=== PATIENT | female | born 1995 | race Caucasian/White ===

== ENCOUNTER 2017-01-06 09:51 | Emergency (ER) | payer BC, MEDICAID ==
[2017-01-06] MEDS ORDERED: ACETAMINOPHEN 325 MG TABLET PO ONE (10:31)
[2017-01-06] MEDS ORDERED: PROMETHAZINE HCL 25 MG TABLET PO ONE (10:31)
--- NOTE | 2017-01-06 10:38 | ER Document Report ---
ED General - General Chief Complaint: Headache Stated Complaint: HEADACHE Mode of Arrival: Ambulatory Information source: Patient Notes: 21-year-old female who is 4 weeks presents with complaints of headache nausea vomiting chest pain that started at the same time 2 days ago. Patient denies any fevers or chills states that she has not taken any medications for her symptoms TRAVEL OUTSIDE OF THE [place] IN LAST 30 DAYS: No - HPI Onset: Other - 2 day duration Onset/Duration: Persistent Quality of pain: Achy Severity: Mild Pain Level: 1 Associated symptoms: Chest pain, Headache, Nausea Exacerbated by: Denies Relieved by: Denies Similar symptoms previously: No Recently seen / treated by doctor: No - Related Data Allergies/Adverse Reactions: sulfamethoxazole [From Bactrim] Allergy (Verified 01/06/17 10:03) trimethoprim [From Bactrim] Allergy (Verified 01/06/17 10:03) Past Medical History - Social History Smoking Status: Never Smoker Cigarette use (# per day): No Chew tobacco use (# tins/day): No Smoking Education Provided: No Frequency of alcohol use: None Drug Abuse: None Family History: Reviewed & Not Pertinent Patient has suicidal ideation: No Patient has homicidal ideation: No Renal/ Medical History: Denies: Hx Peritoneal Dialysis Surgical Hx: Negative - Immunizations Hx Diphtheria, Pertussis, Tetanus Vaccination: Yes Review of Systems - Review of Systems Notes: REVIEW OF SYSTEMS: CONSTITUTIONAL : Denies fever, chills, or sweats. Denies recent illness. EENT: Denies eye, ear, throat, or mouth pain or symptoms. Denies nasal or sinus congestion or discharge. Denies throat, tongue, or mouth swelling or difficulty swallowing. CARDIOVASCULAR: Admits to chest pain RESPIRATORY: Denies cough, cold, or chest congestion. Denies shortness of breath, difficulty breathing, or wheezing. GASTROINTESTINAL: Admits nausea GENITOURINARY: Denies difficulty urinating, painful urination, burning, frequency, blood in urine, or discharge. FEMALE GENITOURINARY: Denies vaginal bleeding, heavy or abnormal periods, irregular periods. Denies vaginal discharge or odor. MUSCULOSKELETAL: Denies back or neck pain or stiffness. Denies joint pain or swelling. SKIN: Denies rash, lesions or sores. HEMATOLOGIC : Denies easy bruising or bleeding. LYMPHATIC: Denies swollen, enlarged glands. NEUROLOGICAL: Admits to headache PSYCHIATRIC: Denies anxiety or stress. Denies depression, suicidal ideation, or homicidal ideation. ALL OTHER SYSTEMS REVIEWED AND NEGATIVE. Dictation was performed using [employer] voice recognition software PHYSICAL EXAMINATION: GENERAL: Well-appearing, well-nourished and in no acute distress. HEAD: Atraumatic, normocephalic. EYES: Pupils equal round and reactive to light, extraocular movements intact, conjunctiva are normal. ENT: Nares patent, oropharynx clear without exudates. Moist mucous membranes. NECK: Normal range of motion, supple without lymphadenopathy LUNGS: Breath sounds clear to auscultation bilaterally and equal. No wheezes rales or rhonchi. HEART: Regular rate and rhythm without murmurs ABDOMEN: Soft, nontender, nondistended abdomen. No guarding, no rebound. No masses appreciated. Female : deferred Musculoskeletal: Normal range of motion, no pitting or edema. No cyanosis. NEUROLOGICAL: Cranial nerves grossly intact. Normal speech, normal gait. Normal sensory, motor exams PSYCH: Normal mood, normal affect. SKIN: Warm, Dry, normal turgor, no rashes or lesions noted. Physical Exam - Vital signs Vitals: Temp Pulse Resp BP Pulse Ox 98.4 F 84 14 124/77 98 01/06/17 09:58 01/06/17 09:58 01/06/17 09:58 01/06/17 09:58 01/06/17 09:58 Course - Re-evaluation Re-evalutation: 01/06/17 10:38 Patient has no vaginal bleeding or discharge, she will be evaluated for her headache and chest pain. 01/06/17 12:19 We discussed the diagnosis and treatment of pulmonary emboli, patient is deferring on CT of chest I will discharge home with close follow-up for reevaluation or return immediately if there are any other concerns After performing a Medical Screening Examination, I estimate there is LOW risk for RUPTURED ESOPHAGUS, PNEUMOTHORAX, PULMONARY EMBOLISM, ACUTE CORONARY SYNDROME, OR THORACIC AORTIC DISSECTION, thus I consider the discharge disposition reasonable. The patient and I have discussed the diagnosis and risks , and we agree with discharging home with close follow-up. We also discussed returning to the Emergency Department immediately if new or worsening symptoms occur. We have discussed the symptoms which are most concerning (e.g., bloody sputum, worsening pain or shortness of breath) that necessitate immediate return. - Vital Signs Vital signs: Temp Pulse Resp BP Pulse Ox 98.4 F 84 14 124/77 98 01/06/17 09:58 01/06/17 09:58 01/06/17 10:25 01/06/17 09:58 01/06/17 09:58 - Diagnostic Test Radiology reviewed: Image reviewed, Reports reviewed Discharge - Discharge Clinical Impression: Headache Qualifiers: Headache type: unspecified Headache chronicity pattern: acute headache Intractability: not intractable Qualified Code(s): R51 - Headache Nausea & vomiting Qualifiers: Vomiting type: unspecified Vomiting Intractability: non-intractable Qualified Code(s): R11.2 - Nausea with vomiting, unspecified Chest pain Qualifiers: Chest pain type: unspecified Qualified Code(s): R07.9 - Chest pain, unspecified Condition: Stable Disposition: HOME, SELF-CARE Instructions: Chest Pain of Unclear Cause ([facility]) Additional Instructions: You must follow-up with your physician in 1-2 days for reevaluation or return immediately if there is any worsening symptoms or any other concerns Prescriptions: Promethazine HCl [Phenergan 25 mg Tablet] 1 - 2 tab PO Q6H PRN #15 tablet PRN Reason:
[2017-01-06 12:41] VITALS: BP 102/58
== END 2017-01-06 12:44 | disposition home or self-care (01) ==
LOC: ER 09:51
DX: O26.91 Pregnancy related conditions, unspecified, first trimester (principal); R51 Headache; R07.9 Chest pain, unspecified; O21.9 Vomiting of pregnancy, unspecified; Z3A.01 Less than 8 weeks gestation of pregnancy; Z88.3 Allergy status to other anti-infective agents
CPT/HCPCS: 71020; 99284

== ENCOUNTER 2017-06-11 09:11 | Inpatient (IN) | payer OTHER, MEDICAID ==
[2017-06-11] MEDS ORDERED: OXYTOCIN 10 UNIT/ML VIAL IV PRN (09:16)
[2017-06-11] MEDS ORDERED: RINGERS SOLUTION,LACTATED 1,000 ML IV PRN (09:16)
[2017-06-11] MEDS ORDERED: METHYLERGONOVINE MALEATE INJ/PF 0.2 MG/1 ML AMPULE IV PRN (09:16)
[2017-06-11] MEDS ORDERED: NALOXONE HCL INJ/PF 0.4 MG/1 ML SDV IV PRN (09:16)
[2017-06-11] MEDS ORDERED: MISOPROSTOL 0.2 MG TABLET PR PRN (09:16)
[2017-06-11] MEDS ORDERED: MISOPROSTOL 0.2 MG TABLET ONE (09:25)
[2017-06-11] MEDS ORDERED: OXYTOCIN/NORMAL SALINE 20 UNIT/1,000 ML RTUINJ ONE (09:25)
[2017-06-11] MEDS ORDERED: LIDOCAINE 1% INJ-PF (10 MG/ML) 30 ML SDV ONE (09:25)
[2017-06-11] MEDS ORDERED: OXYTOCIN/NORMAL SALINE 20 UNIT/1,000 ML RTUINJ IV SCH (09:30)
[2017-06-11 09:57] LABS: HEMOGLOBIN 12.3 g/dL (12.0-15.5); HGB HCT DIFFERENCE -0.1; MEAN CORPUSCULAR HEMOGLOBIN 29.1 pg (27.0-33.4); MEAN CORPUSCULAR HGB CONC 33.1 g/dL (32.0-36.0); MEAN CORPUSCULAR VOLUME 88 fl (80-97); RED BLOOD COUNT 4.21 10^6/uL (3.72-5.28); WHITE BLOOD COUNT 16.9 10^3/uL (4.0-10.5)
[2017-06-11 10:17] LABS: URINE BARBITURATES SCREEN NEGATIVE; URINE METHADONE SCREEN NEGATIVE; URINE OPIATES LOW NEGATIVE; URINE PHENCYCLIDINE SCREEN NEGATIVE
[2017-06-11] MEDS ORDERED: ACETAMINOPHEN WITH CODEINE #3 TABLET PO PRN ×2 (12:58)
[2017-06-11] MEDS ORDERED: DIPH/PERTUSS(ACELL)/TETANUS VAC/PF 0.5 ML SYR (>=10YO) IM PRN (12:58)
[2017-06-11] MEDS ORDERED: MEASLES,MUMPS&RUBELLA VACC/PF 0.5 ML VIAL SUBCUT PRN (12:58)
[2017-06-11] MEDS ORDERED: NA PHOS,M-B/NA PHOS,DI-BA (ADULT) 133 ML ENEMA PR PRN (12:58)
[2017-06-11] MEDS ORDERED: DIPHENHYDRAMINE HCL 25 MG CAPSULE PO PRN (12:58)
[2017-06-11] MEDS ORDERED: PROMETHAZINE HCL INJ 25 MG/1 ML VIAL IV PRN (12:58)
[2017-06-11] MEDS ORDERED: DIBUCAINE 1% OINTMENT 28 GM TP PRN (12:58)
[2017-06-11] MEDS ORDERED: GLYCERIN/WITCH HAZEL LEAF 1 EACH MED..PAD TP PRN (12:58)
[2017-06-11] MEDS ORDERED: PSEUDOEPHEDRINE HCL 30 MG TABLET PO PRN (12:58)
[2017-06-11] MEDS ORDERED: OXYTOCIN/NORMAL SALINE 1,000 ML IV PRN (12:58)
[2017-06-11] MEDS ORDERED: PROMETHAZINE HCL 25 MG SUPP.RECT PR PRN (12:58)
[2017-06-11] MEDS ORDERED: ZOLPIDEM TARTRATE 5 MG TABLET PO PRN (12:58)
[2017-06-11] MEDS ORDERED: MAGNESIUM HYDROXIDE SUSP 30 ML UDCUP PO PRN (12:58)
[2017-06-11] MEDS ORDERED: ACETAMINOPHEN 650 MG SUPP.RECT PR PRN (12:58)
[2017-06-11] MEDS ORDERED: PROMETHAZINE HCL 25 MG TABLET PO PRN (12:58)
[2017-06-11] MEDS ORDERED: BENZOCAINE/MENTHOL AEROSOL SPRAY 56 ML TOP PRN (12:58)
[2017-06-11] MEDS ORDERED: OXYTOCIN/NORMAL SALINE 20 UNIT/1,000 ML RTUINJ IV ONE (14:30)
--- NOTE | 2017-06-11 14:50 | Admission Physical ---
Datetime Report Generated by CPN: 06/11/2017 14:49 CURRENT ADMISSION Chief Complaint: Uterine Contractions Indication for Induction: Not Applicable Admit Plan: Admit to Unit; Initiate Labor Protocol ALLERGIES Medication Allergies: Yes Medication Allergies: sulfamethoxazole (06/11/2017); trimethoprim (06/11/2017) Medication Allergies: sulfamethoxazole (01/06/2017); trimethoprim (01/06/2017) Latex: Latex Allergies OBSTETRICAL HISTORY EDC: 06/09/2017 00:00 : 1 Para: 0 Term: 0 : 0 SAB: 0 IAB: 0 Ectopic: 0 Livin Cesareans: 0 VBACs: 0 Multiple Births: 0 Gestational Diabetes: No Rh Sensitization: No Incompetent Cervix: No ARIANNA: No Infertility: No ART Treatment: No Uterine Anomaly: No IUGR: No Hx Previous C/S: No Macrosomia: No Hx Loss/Stillborn: No PIH: No Hx : No Placenta Previa/Abruption: No Depression/PP Depression: No PTL/PROM: No Post Hemorrhage: No Current Procedures: Ultrasound; NST Obstetrical History Comments: G1-denies SEE RECORDS Alcohol: No Marijuana : No Cocaine: No Other Illicit Drugs: No Cigarettes: Former Smoker. [id number] MEDICAL HISTORY Diabetes: No Blood Transfusion: No Pulmonary Disease (Asthma, TB): No Breast Disease: No Hypertension: No Box Turner Surgery: No Heart Disease: No Hosp/Surgery: No Autoimmune Disorder: No Anesthetic Complications: No Kidney Disease: No Abnormal Pap Smear: No Neuro/Epilepsy: No Psychiatric Disorders: No Other Medical Diseases: No Hepatitis/Liver Disease: No Significant Family History: No Varicosities/Phlebitis: No Trauma/Violence : No Thyroid Dysfunction: No Medical History Comments: h/o Insulin resistance INFECTIOUS HISTORY Gonorrhea: No Genital Herpes: No Chlamydia: No Tuberculosis: No Syphilis: No Hepatitis: No HIV/AIDS Exposure: No Rash or Viral Illness: No HPV: No PHYSICAL EXAM General: Normal HEENT: Normal Neurologic: Normal Thyroid: Normal Heart: Normal Lungs: Normal Breast: Deferred Back: Normal Abdomen: Normal Genitourinary Exam: Normal Extremities: Normal DTRs: Normal Pelvic Type: Adequate Vital Signs: Reviewed; Within Normal Limits VAGINAL EXAM Dilatation: 9 Effacement: 100 Station: 0 MEMBRANES Membranes: Intact FETUS A EGA: 40.2 Monitoring: External US FHR- Baseline: 160 Variability: Moderate 6-25bpm Accelerations: 15X15 Decelerations: None FHR Category: Category I Presentation: Vertex Admit Comment: 21yo at 40+2ega presents for active labor. She was seen on L_D at [facility] last evening and was discharged at 4cm. She was seen in the office this am and c/c/+2 per provider. Cvx upon presentation to L_D 9/c/0. Await arrival and then plan on AROM. GBS negative. A pos. Hx insulin resistance - early Hb A1c 5 and normal GTT. Rubella NI. Anticipate . EFW 7-8# CAT I. PLANS FOR LABOR AND DELIVERY Labor and Delivery: None; Placenta Request Pain Management: None Feeding Preference: Breast Benefit of Breast Feed Discussed: Yes Circumcision: Yes INFORMED CONSENT Informed Consent Obtained: Vaginal Delivery; Risks, Benefits and Alternatives Discussed Signature: with User ID: [email or web address]
[2017-06-11] MEDS: IBUPROFEN 800 MG TABLET PO SCH ×2 (16:35→21:51)
[2017-06-11] MEDS: DOCUSATE SODIUM 100 MG CAPSULE PO SCH (18:04)
[2017-06-11] MEDS: FERROUS SULFATE 325 MG TABLET PO SCH (18:04)
[2017-06-11] MEDS: FAMOTIDINE 20 MG TABLET PO SCH (21:51)
[2017-06-12] MEDS: IBUPROFEN 800 MG TABLET PO SCH ×2 (06:08→14:36)
[2017-06-12 08:25] LABS: HEMATOCRIT 32.7 % (36.0-47.0); HEMOGLOBIN 11.1 g/dL (12.0-15.5); HGB HCT DIFFERENCE 0.6; MEAN CORPUSCULAR HEMOGLOBIN 29.8 pg (27.0-33.4); MEAN CORPUSCULAR VOLUME 88 fl (80-97); RED BLOOD COUNT 3.74 10^6/uL (3.72-5.28); RED CELL DISTRIBUTION WIDTH 14.4 % (11.5-14.0); WHITE BLOOD COUNT 14.4 10^3/uL (4.0-10.5)
--- NOTE | 2017-06-12 09:12 | Delivery Summary ---
Del Sum A-C Datetime Report Generated by CPN: 06/12/2017 09:12 DELIVERY PERSONNEL DELIVERY PERSONNEL: [phone] Delivery Doctor:: Lizzie Chow CNM Nurse Sales Marketing Certified:: Lizzie Chow CNM Labor and Delivery Nurse:: Star Arguello RNregistry rn Nurse:: TEVIN Dela Cruz Nursery Nurse:: Diamond Goodman RN Nursery Nurse:: Patsy Darling RN Student Observers:: director acute Deputy Manager/FORM SETTER: Christa Henry CNA II Deputy Manager/FORM SETTER: Stephania Mcpherson, SUPERVISOR [employer] MATERNAL INFORMATION Delivery Anesthesia: None Medications After Delivery: Pitocin Bolus-Please Comment; Pitocin Drip 20 Units/1000ml NSS Estimated Blood Loss (ml): 250 Maternal Complications: None Provider Comments: Onset of labor, AROM at 9cm. BASSAM baby, vigorous , placed on mothers abd. Cord clamped x 2 cut per FOB, 3 VC. Placenta spont via amaro. EBL 250. Apgars 8,9. Mother and stable. No lacerations. LABOR SUMMARY EDC: 06/09/2017 00:00 No. Babies in Womb: 1 Attempted: No Labor Anesthesia: None LABOR INFORMATION Reason for Induction: Not Applicable Onset of Labor: 06/11/2017 00:00 Oxytocin: N/A Group B Beta Strep: negative Steroids Given: None Reason Steroids Not Administered: Not Applicable MEMBRANES Membranes Rupture Method: Artificial Rupture of Membranes: 06/11/2017 10:14 Length of Rupture (hr): 2.00 Amniotic Fluid Color: Clear Amniotic Fluid Amount: Small Amniotic Fluid Odor: Normal STAGES OF LABOR Stage 3 hr: 0 Stage 3 min: 6 Total Time in Labor hr: 12 Total Time in Labor min: 20 VAGINAL DELIVERY Episiotomy: None Laceration Extension: N/A Laceration Type: None Laceration Repair: Not Applicable Laceration Repair Note: no lacerations CSECTION DELIVERY Primary Indication: N/A Secondary Indication: N/A CSection Incidence: N/A Labor: N/A Elective: N/A CSection Incision: N/A BABY A INFORMATION Delivery Date/Time: 06/11/2017 12:14 Method of Delivery: Vaginal Born in Route : No : N/A Forceps: N/A Vacuum Extraction: N/A Shoulder Dystocia : No PRESENTATION/POSITION BABY A Presentation: Cephalic Cephalic Presentation: Vertex Vertex Position: Left Occipital Anterior Breech Presentation: N/A PLACENTA INFORMATION BABY A Placenta Delivery Time : 06/11/2017 12:20 Placenta Method of Delivery: Spontaneous Placenta Status: Delivered SCORES BABY A Heart Rate 1 min: >100 bpm Resp Effort 1 min: Good Cry Reflex Irritability 1 min: Cough or Sneeze or Pulls Away Muscle Tone 1 min: Active Motion Color 1 min: Blue/Pale Resuscitation Effort 1 min: Tactile Stimulation SCORE 1 MIN: 8 Heart Rate 5 min: >100 bpm Resp Effort 5 min: Good Cry Reflex Irritability 5 min: Cough or Sneeze or Pulls Away Muscle Tone 5 min: Active Motion Color 5 min: Body Onycha, Extremities Blue Resuscitation Effort 5 min: Tactile Stimulation SCORE 5 MIN: 9 INFORMATION BABY A Gestational Age at Delivery: 40.2 Gestational Status: Full Term- 39- 40.6 Weeks Infant Outcome : Liveborn Condition : Stable Sex: Male IDENTIFICATION BABY A Infant Verification Date/Time: 06/11/2017 12:28 ID Band Number: [id number] Mother's Name Verified: Yes Infant RN Verifying : Chandrika Britt [facility] Additional Verifying Personnel: Star Arguello RN WEIGHT/LENGTH BABY A Birthweight (gm): 2920 Weight (lb): 6 Infant Weight (oz): 7 Length (in): 19.00 Length (cm): 48.26 CORD INFORMATION BABY A No. Cord Vessels: 3 Nuchal Cord : N/A True Knot: 1 Cord Blood Taken: Yes-For Storage (Mom's Blood type +) Suction: Mouth; Nose ASSESSMENT BABY A Complications: None Physical Findings at Delivery: Molding of the Head Infant Respirations: Grunting; Intercostal Retractions; Nasal Flaring; Sternal Retractions Skin to Skin: Yes Skin to Skin Time (min): 10 Tool Hardener/ALS Called : No Infant Care By: Carmelo Kimbrough RN, RN Transferred To: Nursery BABY B INFORMATION : N/A SIGNATURES Assignment: Juliann Sparrow MD Signature: with User ID: [email or web address] : with User ID: [email or web address] : I was personally available for consultation and serving as supervising physician for the MLP.
[2017-06-12] MEDS: PRENATAL VITAMIN W-O CA NO5/FE FUMARATE/FA CAPSULE PO SCH (09:56)
[2017-06-12] MEDS: FAMOTIDINE 20 MG TABLET PO SCH (09:56)
[2017-06-12] MEDS: FERROUS SULFATE 325 MG TABLET PO SCH ×2 (09:56→17:15)
[2017-06-12] MEDS: DOCUSATE SODIUM 100 MG CAPSULE PO SCH ×2 (09:57→17:15)
[2017-06-12] MEDS: SENNOSIDES/DOCUSATE 8.6-50 MG 1 EACH TABLET PO SCH (09:57)
[2017-06-13] MEDS: IBUPROFEN 800 MG TABLET PO SCH ×2 (01:20→06:38)
[2017-06-13] MEDS: FAMOTIDINE 20 MG TABLET PO SCH ×2 (01:20→10:04)
--- NOTE | 2017-06-13 09:30 | PDOC PROGRESS REPORT ---
Subjective-OB Subjective: Post Delivery Day: 21 year old. Denies any needs at this time Doing well, ready to go home, hsb at [facility], , scant lochia Physical Exam (OB) Vital Signs: Temp Pulse Resp BP Pulse Ox 98.1 F 89 17 122/67 100 06/13/17 07:33 06/13/17 07:33 06/13/17 07:33 06/13/17 07:33 06/13/17 07:33 Intake & Output 06/12/17 06/13/17 06/14/17 06:59 06:59 06:59 Intake Total 300 Balance 300 Weight 95.09 kg - PIH/Pre-Eclampsia DTR's: 1 + Clonus: Negative Headache: Absent Epigastric Pain: No Visual Changes: No - Lochia Lochia Amount: Small 10-25 ml Lochia Color: Rubra/Red - Abdomen Description: Soft Hernia Present: No Fundal Description: Firm, Midline Fundal Height: u/u - u/2 Objective-Diagnostic Laboratory: 06/12/17 07:52 Assessment and Plan(PN) - Assessment and Plan (1) Vaginal delivery Is this a current diagnosis for this admission?: Yes - Time Spent with Patient Time with patient: Less than 15 minutes Medications reviewed and adjusted accordingly: Yes - Disposition Anticipated Discharge: Home Within: Other - home today
--- NOTE | 2017-06-13 09:33 | PDOC DISCHARGE SUMMARY ---
Final Diagnosis Discharge Date: 06/13/17 - Final Diagnosis (1) Vaginal delivery Is this a current diagnosis for this admission?: Yes Discharge Data - Discharge Medication Home Medications: Pnv No.122/Iron/Folic Acid [ Multi Tablet] 1 tab PO DAILY 06/11/17 Reason(s) for Admission: Onset of Labor Procedures: Ultrasound Intrapartum Procedure(s): Spontaneous Vaginal Delivery - Data Baby 1 Male at 1 minute: 8 at 5 minutes: 9 Weight: 2.92 kg Home with Mother: Yes Complications: No - Diagnosis Test Laboratory: Temp Pulse Resp BP Pulse Ox 98.1 F 89 17 122/67 100 06/13/17 07:33 06/13/17 07:33 06/13/17 07:33 06/13/17 07:33 06/13/17 07:33 06/11/17 06/11/17 06/12/17 09:06 09:45 07:52 RBC 4.21 3.74 Hgb 12.3 11.1 L Hct 37.0 32.7 L Urine Opiates Screen NEGATIVE - Discharge information/Instructions Discharge Activity: Activity As Tolerated, No Lifting Over 10 Pounds, Pelvic Rest Discharge Diet: As Tolerated, Regular Disposition: HOME, SELF-CARE Follow up with: [facility] in: 4, Weeks
[2017-06-13] MEDS: SENNOSIDES/DOCUSATE 8.6-50 MG 1 EACH TABLET PO SCH (10:03)
[2017-06-13] MEDS: PRENATAL VITAMIN W-O CA NO5/FE FUMARATE/FA CAPSULE PO SCH (10:03)
[2017-06-13] MEDS: FERROUS SULFATE 325 MG TABLET PO SCH (10:04)
[2017-06-13] MEDS: DOCUSATE SODIUM 100 MG CAPSULE PO SCH (10:04)
[2017-06-13 10:15] VITALS: BP 122/63
== END 2017-06-13 11:21 | disposition home or self-care (01) | DRG 775 ==
LOC: LR 09:11 → 2S 14:48
PROVIDERS: ADMIT Student in an Organized Health Care Education/Training Program; ATTEND Student in an Organized Health Care Education/Training Program
PROC: 10E0XZZ Delivery of Products of Conception, External Approach (ICD-10-PCS; principal; 2017-06-11)
PROC: 4A1HXCZ Monitoring of Products of Conception, Cardiac Rate, External Approach (ICD-10-PCS; 2017-06-11)
PROC: 3E0234Z Introduction of Serum, Toxoid and Vaccine into Muscle, Percutaneous Approach (ICD-10-PCS; 2017-06-11)
PROC: 3E0234Z Introduction of Serum, Toxoid and Vaccine into Muscle, Percutaneous Approach (ICD-10-PCS; 2017-06-13)
DX: O80 Encounter for full-term uncomplicated delivery (principal); Z3A.40 40 weeks gestation of pregnancy; Z37.0 Single live birth; Z23 Encounter for immunization
CPT/HCPCS: 36415; 80307; 85027; 86592; 86850; 86900; 86901; 90707; 90715; J2590; J3490